=== PATIENT | male | born 1990 | race Hispanic/Latino ===

== ENCOUNTER 2016-10-08 22:18 | Emergency (ER) | payer OTHER ==
[2016-10-08] MEDS ORDERED: FLEXERIL PO ONE (23:00)
[2016-10-08] MEDS ORDERED: MOTRIN PO ONE (23:00)
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
[2016-10-09 01:30] VITALS: BP 138/82
--- NOTE | 2016-10-09 09:52 | XRay Report ---
RIGHT SHOULDER: History: Right shoulder pain. Routine views demonstrate normal bony and soft tissue structures with normal joint alignment of the shoulder. IMPRESSION: Normal study.
--- NOTE | 2016-10-09 09:53 | XRay Report ---
ROUTINE CHEST, TWO VIEWS: HISTORY: Right sided chest pain. The trachea, heart, mediastinal contour, lung wheat and bony thorax are unremarkable. IMPRESSION: Unremarkable chest x-ray.
== END 2016-10-09 01:30 | disposition admitted as inpatient to this hospital (09) ==
LOC: ED 22:18
DX: M79.662 Pain in left lower leg (principal); M25.511 Pain in right shoulder; M54.9 Dorsalgia, unspecified; V89.2XXA Person injured in unspecified motor-vehicle accident, traffic, initial encounter; Y93.89 Activity, other specified; Y99.8 Other external cause status; Y92.488 Other paved roadways as the place of occurrence of the external cause
CPT/HCPCS: 71020